=== PATIENT | male | born 1970 | race Caucasian/White ===

== ENCOUNTER 2016-08-17 09:40 | Emergency (ER) | payer OTHER ==
[~2016-08-17] VITALS: Ht 177.8 cm; Wt 88.5 kg
[2016-08-17] MEDS ORDERED: ISENTRESS400 MG ORAL (09:54)
[2016-08-17] MEDS ORDERED: [UNRECOGNIZED DRUG - OTHER] ORAL (09:54)
[2016-08-17 10:05] VITALS: BP 128/73
[2016-08-17] MEDS ORDERED: Fleet's Enema 133ml RECTAL ONE (10:30)
[2016-08-17 10:36] LABS: APPEARANCE,URINE CLEAR; KETONES,URINE NEGATIVE (NEGATIVE); LEUKOCYTE ESTERASE ,URINE 1+ (NEGATIVE); NITRITE,URINE NEGATIVE (NEGATIVE); PH,URINE 6 (4.5-8.0); PROTEIN,URINE 2+ (NEGATIVE); UROBILINOGEN,URINE NORMAL MG/DL (0.0-1.0)
[2016-08-17 10:40] LABS: BASOPHILS % (AUTO) 2.2 % (0.0-2.0); EOSINOPHILS % (AUTO) 1.2 % (0.0-3.0); LYMPHOCYTES % (AUTO) 28.8 % (20.0-45.0); MEAN CORPUSCULAR HEMOGLOBIN 29.1 PG (27.0-31.0); MEAN CORPUSCULAR HGB CONC 33.4 G/DL (32.0-36.0); MEAN CORPUSCULAR VOLUME 87 FL (80-99); MEAN PLATELET VOLUME 6.7 FL (6.5-10.1); MONOCYTES % (AUTO) 17.7 % (1.0-10.0); NEUTROPHILS % (AUTO) 50.1 % (45.0-75.0); PLATELET COUNT 164 K/UL (150-450); RED BLOOD COUNT 4.69 M/UL (4.70-6.10); RED CELL DISTRIBUTION WIDTH 12.1 % (11.6-14.8); WHITE BLOOD COUNT 5.6 K/UL (4.8-10.8)
[2016-08-17 10:45] LABS: ALANINE AMINOTRANSFERASE 31 U/L (3-41); ANION GAP 9 (5-15); ASPARTATE AMINO TRANSFERASE 28 U/L (5-40); CALCIUM 8.7 mg/dL (8.6-10.2); CARBON DIOXIDE 29 mEQ/L (20-30); CHLORIDE 98 mEQ/L (98-107); CREATININE 0.8 mg/dL (0.7-1.2); GLOMERULAR FILTRATION RATE > 60 mL/min (>60); HEMOLYSIS 3; LIPASE 20 U/L (< 60); SODIUM 136 mEQ/L (135-145); TOTAL PROTEIN 7.2 g/dL (6.6-8.7)
[2016-08-17 10:47] LABS: BACTERIA,URINE FEW /HPF; MUCUS,URINE FEW /LPF (NONE/OCC); RBC,URINE 0-2 /HPF (0 - 0); SQUAMOUS EPITHELIAL CELL,UR OCCASIONAL /LPF (NONE/OCC); WBC,URINE 0-2 /HPF (0 - 0)
--- NOTE | 2016-08-17 11:38 | Emergency Room Report ---
History of Present Illness General Chief Complaint: Abdominal Pain Source: Patient Present Illness HPI This patient states that he had been constipated for several days. He had developed abdominal cramping and pain a few days ago. He states that he did take a stool softener and laxative. He states that he's had small amounts of diarrhea. He states that he continues to have crampy abdominal pain. He states that the intensity waxes and wanes. He denies fever or chills. He denies nausea or vomiting. He denies dysuria or hematuria. He does have a history of HIV but is very controlled and undetectable viral load. He denies chest pain or shortness of breath. He denies fever or chills. He has no other complaints. Allergies: Coded Allergies: No Known Allergies (Unverified , 08/17/16) Patient History Past Medical History: HIV Social History: Denies: alcohol use, drug use, smoking Reviewed Nursing Documentation: PMH: Agreed, PSxH: Agreed Nursing Documentation-PMH Past Medical History: No History, Except For Review of Systems All Other Systems: negative except mentioned in HPI Physical Exam Vital Signs Date Time Temp Pulse Resp B/P Pulse Ox O2 Delivery O2 Flow Rate FiO2 08/17/16 09:44 97.9 88 16 128/73 99 Room Air Sp02 EP Interpretation: reviewed, normal General Appearance: no apparent distress, alert, GCS 15, non-toxic Head: normocephalic, atraumatic Eyes: bilateral eye PERRL, bilateral eye normal inspection ENT: hearing grossly normal, normal pharynx, no angioedema, normal voice Neck: full range of motion, supple/symm/no masses Respiratory: chest non-tender, lungs clear, normal breath sounds, speaking full sentences Cardiovascular #1: regular rate, rhythm, no edema Gastrointestinal: normal bowel sounds, soft, non-distended, no guarding, no rebound, tenderness - Mild TTP diffusely Rectal: deferred Musculoskeletal: back normal, gait/station normal, normal range of motion, non- tender Neurologic: alert, oriented x3, responsive, motor strength/tone normal, sensory intact, speech normal Psychiatric: judgement/insight normal, memory normal, mood/affect normal, no suicidal/homicidal ideation Skin: normal color, no rash, warm/dry, well hydrated Medical Decision Making Diagnostic Impression: Primary Impression: Abdominal pain ER Course This patient presents with crampy abdominal pain and constipation. He has attempted to use stool softeners and a laxative. His symptoms come and go. Laboratory workup is benign. Specifically white blood cell count. Urinalysis is negative. The patient is not tender at the right lower quadrant and really has a nonspecific abdominal exam. I went ahead and gave this patient a Fleet enema. He did have a bowel movement here in the emergency department. Unfortunately, this did not relieve the patient's symptoms. Given the ongoing pain, I felt I should obtain a CT abdomen and pelvis. CT abdomen and pelvis showed no specific findings. The patient did appear comfortable and was sleeping here in the emergency department. Reassessment of the patient, and he states that he feels the symptoms are significantly improved. I did give the patient close return precautions and appendicitis precautions. The patient indicated understanding. I will also place the patient on a bowel regimen. Labs Test 08/17/16 10:17 White Blood Count 5.6 K/UL (4.8-10.8) Red Blood Count 4.69 M/UL (4.70-6.10) Hemoglobin 13.6 G/DL (14.2-18.0) Hematocrit 40.8 % (42.0-52.0) Mean Corpuscular Volume 87 FL (80-99) Mean Corpuscular Hemoglobin 29.1 PG (27.0-31.0) Mean Corpuscular Hemoglobin Concent 33.4 G/DL (32.0-36.0) Red Cell Distribution Width 12.1 % (11.6-14.8) Platelet Count 164 K/UL (150-450) Mean Platelet Volume 6.7 FL (6.5-10.1) Neutrophils (%) (Auto) 50.1 % (45.0-75.0) Lymphocytes (%) (Auto) 28.8 % (20.0-45.0) Monocytes (%) (Auto) 17.7 % (1.0-10.0) Eosinophils (%) (Auto) 1.2 % (0.0-3.0) Basophils (%) (Auto) 2.2 % (0.0-2.0) Urine Color Yellow Urine Appearance Clear Urine pH 6 (4.5-8.0) Urine Specific [place] 1.020 (1.005-1.035) Urine Protein 2+ (NEGATIVE) Urine Glucose (UA) Negative (NEGATIVE) Urine Ketones Negative (NEGATIVE) Urine Occult Blood Negative (NEGATIVE) Urine Nitrite Negative (NEGATIVE) Urine Bilirubin Negative (NEGATIVE) Urine Urobilinogen Normal MG/DL (0.0-1.0) Urine Leukocyte Esterase 1+ (NEGATIVE) Urine RBC 0-2 /HPF (0 - 0) Urine WBC 0-2 /HPF (0 - 0) Urine Squamous Epithelial Cells Occasional /LPF Urine Bacteria Few /HPF (NONE) Urine Mucus Few /LPF (NONE/OCC) Sodium Level 136 mEQ/L (135-145) Potassium Level 4.0 mEQ/L (3.4-4.9) Chloride Level 98 mEQ/L (98-107) Carbon Dioxide Level 29 mEQ/L (20-30) Anion Gap 9 (5-15) Blood Urea Nitrogen 14 mg/dL (7-23) Creatinine 0.8 mg/dL (0.7-1.2) Estimat Glomerular Filtration Rate > 60 mL/min (>60) Glucose Level 113 mg/dL (74-106) Calcium Level 8.7 mg/dL (8.6-10.2) Total Bilirubin 0.4 mg/dL (0.0-1.2) Aspartate Amino Transf (AST/SGOT) 28 U/L (5-40) Alanine Aminotransferase (ALT/SGPT) 31 U/L (3-41) Alkaline Phosphatase 115 U/L (40-129) Total Protein 7.2 g/dL (6.6-8.7) Albumin 3.6 g/dL (3.5-5.2) Globulin 3.6 g/dL Albumin/Globulin Ratio 1.0 (1.0-2.7) Lipase 20 U/L (< 60) CT/MRI/US Diagnostic Results CT/MRI/US Diagnostic Results : Imaging Test Ordered: CT abd/pelvis Impression Limited evaluation of gastrointestinal tract due to technical factors described. No evidence of obstruction, perforation, overt acute inflammation or abscess. Mild prominence of appendix without obvious acute inflammatory change. One or more segments of pathologic mural thickening involving small bowel and/or colon not excludable. Repeat CT scan with full oral and IV contrast preparation may be of benefit in more complete evaluation. Suggestion of sludge versus stones in gallbladder lumen. No obvious acute inflammation. Consider ultrasound correlation. Upper pole renal cortical scarring versus junctional parenchymal defect, latter developmental variant Splenomegaly, nonspecific. Small right inguinal hernia contains only fat Pulmonary bibasal subsegmental atelectasis and minimal groundglass opacity. Latter likely also atelectatic in nature. Edema or inflammatory disease not excludable. Mild degenerative spondylosis Mild arteriosclerosis Last Vital Signs Date Time Temp Pulse Resp B/P Pulse Ox O2 Delivery O2 Flow Rate FiO2 08/17/16 10:05 97.9 16 128/73 99 Room Air 08/17/16 09:44 88 Disposition: HOME, SELF-CARE Condition: Improved Referrals: JACKSON OLGUIN MD (PCP) Patient Instructions: Abdominal Pain, Adult SERGE PEDRAZA D.O. Aug 17, 2016 11:38
[2016-08-17 12:52] VITALS: BP 120/72
--- NOTE | 2016-08-17 14:03 | Diagnostic Imaging Report ---
Indications: Several day history of crampy abdominal pain and constipation Technique: Continuous helical CT imaging of the abdomen and pelvis was performed with automatic exposure control following administration of nonionic IV contrast only, on a Siemens sensation [address] scanner. Axial, coronal, sagittal images were reconstructed at 5 mm slice thickness. No oral contrast was administered per requesting physician's order, despite no contraindications listed in either submitted clinical data or tech note.. CTDI volume(s): 14x2 mGy Total DLP: 1095 mGy-cm Findings: Comparison: None Lack of oral contrast limits evaluation of gastrointestinal tract, nondilated throughout. Appendix 8 mm maximal diameter. No adjacent inflammatory stranding or fluid.. Multiple segments of small bowel and colon nondistended, further limiting evaluation. No obvious adjacent stranding, extraluminal gas or fluid collections identified. Suggestion of subtly increased attenuation in dependent portion of gallbladder lumen. No mural thickening, adjacent stranding or fluid. Spleen 18 cm, no focal lesion. Focal indentation upper pole cortex right kidney, latter otherwise unremarkable in appearance. Small fat-containing right inguinal hernia. Scattered arterial mural calcifications without obvious flow-limiting stenosis or occlusion. Liver, pancreas, adrenal glands, left kidney, unopacified ureters and urinary bladder, prostate, seminal vesicles, retroperitoneum, mesentery, remainder visualized abdominopelvic anatomy unremarkable. Small irregular pleural-based linear densities and patchy groundglass opacities in the dependent portions of both lung bases.. Mild disc space narrowing with marginal osteophyte formation lower thoracic, mid lumbar spine. No focal skeletal lesions are identified. IMPRESSION: Limited evaluation of gastrointestinal tract due to technical factors described. No evidence of obstruction, perforation, overt acute inflammation or abscess. Mild prominence of appendix without obvious acute inflammatory change. One or more segments of pathologic mural thickening involving small bowel and/or colon not excludable. Repeat CT scan with full oral and IV contrast preparation may be of benefit in more complete evaluation. Suggestion of sludge versus stones in gallbladder lumen. No obvious acute inflammation. Consider ultrasound correlation. Upper pole renal cortical scarring versus junctional parenchymal defect, latter developmental variant Splenomegaly, nonspecific. Small right inguinal hernia contains only fat Pulmonary bibasal subsegmental atelectasis and minimal groundglass opacity. Latter likely also atelectatic in nature. Edema or inflammatory disease not excludable. Mild degenerative spondylosis Mild arteriosclerosis
[2016-08-17] MEDS ORDERED: MIRALAX17 G2 ORAL (14:23)
[2016-08-17] MEDS ORDERED: COLACE100 MG ORAL (14:23)
[2016-08-17 15:00] VITALS: BP 118/68
[2016-08-17 15:13] VITALS: BP 118/68
== END 2016-08-17 15:15 | disposition home or self-care (01) ==
LOC: EMR 10:24
DX: R10.9 Unspecified abdominal pain (principal); K59.00 Constipation, unspecified
CPT/HCPCS: 36415; 74177; 80053; 81003; 83690; 85025; 99284; Q9967

== ENCOUNTER 2016-10-13 12:05 | Emergency (ER) | payer SELFPAY ==
[~2016-10-13] VITALS: Ht 177.8 cm; Wt 88.5 kg
[~2016-10-13 12:05] MED LIST: COLACE100 MG ORAL; ISENTRESS400 MG ORAL; MIRALAX17 G2 ORAL; [UNRECOGNIZED DRUG - OTHER] ORAL
--- NOTE | 2016-10-13 12:37 | Emergency Room Report ---
History of Present Illness General Chief Complaint: Lower Extremity Injury Source: Patient Present Illness HPI The patient is a 46 old male presenting with right foot toe pain which began 2 weeks prior after the patient states that he stubbed the toe on a metal frame. Pain is described as a 5/10 dull ache and does not radiate from the second toe. Pain worse with walking and touch. The patient denies injuring this area before. The patient has not tried any pain medication. The patient denies any other symptoms including F, chills, rash, numbness/tingling Allergies: Coded Allergies: No Known Allergies (Unverified , 08/17/16) Patient History Past Medical History: see triage record Pertinent Family History: none Reviewed Nursing Documentation: PMH: Agreed, PSxH: Agreed Nursing Documentation-PMH Past Medical History: No History, Except For Review of Systems All Other Systems: negative except mentioned in HPI Physical Exam Vital Signs Date Time Temp Pulse Resp B/P Pulse Ox O2 Delivery O2 Flow Rate FiO2 10/13/16 12:11 98.1 70 16 134/80 97 Sp02 EP Interpretation: reviewed, normal General Appearance: no apparent distress, alert, GCS 15, non-toxic Head: normocephalic, atraumatic Eyes: bilateral eye PERRL, bilateral eye normal inspection Musculoskeletal: decreased range of motion, swelling, tender - TTP over R 2nd digit Neurologic: alert, oriented x3, responsive, motor strength/tone normal, sensory intact, normal gait, speech normal Psychiatric: judgement/insight normal, memory normal, mood/affect normal, no suicidal/homicidal ideation Skin: normal color, no rash, warm/dry, well hydrated Lymphatic: no adenopathy Procedures Splinting Splinting : Consent: Verbal Location: R foot Pre-Made Type: velcro Splint: cast shoe Pre-Proc Neuro Vasc Exam: normal Post-Proc Neuro Vasc Exam: normal Patient Tolerated: Well Complications: None Medical Decision Making PA Attestation Dr. Fleming is my supervising physician. Patient management was discussed with my supervising physician Diagnostic Impression: Primary Impression: Fracture, toe ER Course The patient is a 46 old male presenting with right foot toe pain which began 2 weeks prior Ddx considered include but not limited to sprain/strain, fracture, contusion, dislocation PE:vitals WNL. NAD Right foot: There is tenderness to palpation over the proximal second digit with swelling. Mild ecchymosis as well. Sensation intact to light touch. Limited active range of motion. X-ray of the foot shows a nondisplaced fracture of the proximal phalanx. [place]osta tape was placed over the second and first digit and foot is placed in a cast shoe. The patient is given Motrin for pain and will be discharged. The patient will followup with PMD and possibly orthopedics. ER precautions are given Other X-Ray Diagnostic Results Other X-Ray Diagnostic Results : X-Ray Ordered: R foot Date: Oct 13, 2016 Findings: no dislocation, other - Nondisplaced fracture proximal aspect second proximal phalanx with partial healing Number of Views: 3 PA Scribe Text I am acting as scribe for my supervising physician. My supervising physician's interpretation of the R foot xrays are there are is a nondisplaced fracture of 2nd phalynx Last Vital Signs Date Time Temp Pulse Resp B/P Pulse Ox O2 Delivery O2 Flow Rate FiO2 10/13/16 12:11 98.1 70 16 134/80 97 Status: improved Disposition: HOME, SELF-CARE Condition: Improved Scripts Ibuprofen* (MOTRIN*) 600 Mg Tablet 600 MG ORAL Q8H Y for For Pain, #30 TAB 0 Refills Prov: CARY CHAVEZ 10/13/16 CARY CHAVEZ Oct 13, 2016 12:37
[2016-10-13] MEDS ORDERED: IBUPROFEN600 MG ORAL (12:53)
[2016-10-13 13:00] VITALS: BP 129/76
--- NOTE | 2016-10-13 14:16 | Diagnostic Imaging Report ---
Indications: Blunt trauma to right second toe 2 weeks ago, persistent pain and swelling Technique: 3 views right foot. Findings: Comparison: None There is a nondisplaced transverse fracture through the proximal metadiaphyseal junction of the second proximal phalanx. Some periosteal callus formation resides along its lateral margin. Surrounding soft tissues are mildly swollen. No additional Fracture, dislocation, joint space widening , soft tissue gas or foreign body,, or other acute changes are identified. IMPRESSION: Nondisplaced fracture proximal aspect second proximal phalanx with partial healing
== END 2016-10-13 13:08 | disposition home or self-care (01) ==
LOC: EMR 12:58
DX: S92.514A Nondisplaced fracture of proximal phalanx of right lesser toe(s), initial encounter for closed fracture (principal); W22.09XA Striking against other stationary object, initial encounter; Y92.9 Unspecified place or not applicable; Y99.8 Other external cause status
CPT/HCPCS: 99283